=== PATIENT | male | born 1955 | race Caucasian/White ===

== ENCOUNTER 2019-08-05 10:24 | Emergency (ER) | payer SELFPAY ==
[~2019-08-05] VITALS: Ht 172.7 cm; Wt 102.1 kg
[~2019-08-05 10:24] MED LIST: FLEXERIL5 MG PO; HYDROCODONE BIT1 T11 PO; NKHM; VICODIN 5/500 505 MG PO
[2019-08-05] MEDS ORDERED: PROVENTIL HFA6.7 GM INH (11:40)
[2019-08-05] MEDS ORDERED: SPIRIVA -- 3018 MCG INH (11:40)
[2019-08-05] MEDS ORDERED: VIBRAMYCIN100 MG PO (11:40)
[2019-08-05] MEDS ORDERED: PREDNISONE50 MG PO (11:40)
== END 2019-08-05 12:02 | disposition home or self-care (01) ==
LOC: ED 10:24
DX: J44.1 Chronic obstructive pulmonary disease with (acute) exacerbation (principal); Z79.899 Other long term (current) drug therapy; Z87.891 Personal history of nicotine dependence